=== PATIENT | female | born 1990 | race Hispanic/Latino ===

== ENCOUNTER 2024-04-06 10:13 | Outpatient (CLI) | payer OTHER, SELFPAY | END 2024-04-06 10:14 | disposition home or self-care (01) | LOC: SCSMRI 10:13 | PROVIDERS: ATTEND Orthopaedic Surgery | DX: M23.92 Unspecified internal derangement of left knee (principal); S83.282A Other tear of lateral meniscus, current injury, left knee, initial encounter; M24.19 Other articular cartilage disorders, other specified site; M25.862 Other specified joint disorders, left knee; M67.462 Ganglion, left knee; M25.462 Effusion, left knee; R93.7 Abnormal findings on diagnostic imaging of other parts of musculoskeletal system ==